=== PATIENT | female | born 1960 ===

== ENCOUNTER 2025-02-10 08:46 | Outpatient (AMB) | payer OTHER, SELFPAY ==
--- OUTSIDE RECORDS SUMMARY | 2025-02-10 09:12 | XMS_ITS | Clinical Summary ---
Author Organization [facility] [place] [address] Phone Care Team Providers Care Precinct I Police Sergeant Name Role Phone Araceli Street NP Primary Care Provider Allergies Active Allergy Reactions Criticality Noted Date Comments Prochlorperazine Anaphylaxis High 04/15/2024 Medications omeprazole (PriLOSEC) [address] capsule Take 1 capsule (40 mg total) by mouth every other day. Active multivitamine, geriatric, (Multivitamin 50 Plus) tablet Take by mouth. 3 Active loratadine 10 mg capsule Take 10 mg by mouth. 3 Active hydrocortisone (ANUSOL-HC) 2.5 % rectal creamIndications :Hemorrhoids, unspecified hemorrhoid type Insert into the rectum 2 (two) times a day. Use as needed for hemorrhoids 30 g 11 4 04/15/20 25 Active Active Problems No known active problems Surgical History Surgery Date Site/Laterality Comments COLONOSCOPY DILATION AND CURETTAGE OF UTERUS SKIN CANCER EXCISION Medical History Medical History Date Comments GERD (gastroesophageal reflux disease) Seasonal allergies Family History Relation Name Status Comments Maternal Grandfather COLON C A Social History Tobacco Use Types Packs/Day Years Used Date Smoking Tobacco: Never Smokeless Tobacco: Never Tobacco Cessation:Counseling Given: Not Answered Alcohol Use Standard Drinks/Week Comments Not Currently 0 (1 standard drink = 0.6 oz pur e alcohol) Interpersonal Safety Answer Date Record ed Physical Abuse 04/15/2024 Verbal Abuse 04/15/2024 Comments No Sex and Gender Information Value Date Recorded Sex Assigned at Not on file Legal Sex Female 3:42 PM EDT Gender Identity Not on file Sexual Orientation Not on file Obstetrics History Last Filed Vital Signs Vital Sign Reading Time Taken Comments Blood Pressure 145/66 04/15/2024 1:15 PM EST Pulse 73 04/15/2024 1:15 PM EST Temperature 37 C (98.6 F) 04/15/2024 1:15 PM EST Respiratory Rate 14 04/15/2024 1:15 PM EST Oxygen Saturation 96% 04/15/2024 1:15 PM EST Inhaled Oxygen Concentration - - Weight 81.6 kg (180 lb) 04/15/2024 11:55 AM EST Height 162.6 cm (5' 4 ) 04/15/2024 11:55 AM EST Body Mass Index 30.9 04/15/2024 11:55 AM EST Plan of Treatment Health Maintenance Due Date Last Done Comments Breast Cancer Screening 1960 Cervical Cancer Screening: P ap Smear 1982 Pneumococcal Vaccine: 50+ Years (1 of 1 - PCV) 2011 Zoster Vaccines (1 of 2) 2011 HIV Screening 03/25/2024 Hepatitis C Screening 03/25/2024 Social Influencers of Health Screening 03/25/2024 Depression Screening 06/10/2024 COVID-19 Vaccine (1 - 2023-2 5 season) 2025 Influenza Vaccine (#1) 2025 , 04/28/2019 DTaP,Tdap,and Td Vaccines (2 - Td or Tdap) 12/31/2026 12/31/2016 Colorectal Cancer Screening: Colonoscopy 04/15/2034 04/15/2024 RSV Immunization Adult Patients (1 - 1-dose 75+ series) 2036 HIB Vaccines Aged Out No longer eligi ble based on patient's age to complete this topic HPV Vaccines Aged Out No longer eligi ble based on patient's age to complete this topic Hepatitis A Vaccines Aged Out No long er eligible based on patient's age to complete this topic Hepatitis B Vaccines Aged Out No long er eligible based on patient's age to complete this topic IPV Vaccines Aged Out No longer eligi ble based on patient's age to complete this topic MMR Vaccines Aged Out No longer eligi ble based on patient's age to complete this topic Meningococcal ACWY Vaccine Aged Out N o longer eligible based on patient's age to complete this topic Meningococcal B Vaccine Aged Out No l onger eligible based on patient's age to complete this topic RSV Immunization Patients Under 20 months Aged Out No longer eligible b ased on patient's age to complete this topic Varicella Vaccines Aged Out No longer eligible based on patient's age to complete this topic Procedures Procedure Name Priority Date/Time Associated Diagnosis Comments COLONOSCOPY Routine 04/15/2024 12:52 PM EST Encounter for screening for malignant neoplasm of colon from Last 3 Months or Most Recently Relevant to Health Maintenance Results * COLONOSCOPY Anesthesia - MAC; [facility] ENDOSCOPY (04/15/2024 12:52 PM EST) Anatomical Region Laterality Modality Endoscopy 04/15/2024 12:3 1 PM EST Narrative 04/15/2024 12:58 PM EST [facility] GI Patient Name: Zaira Pate Procedure Date: 04/15/2024 12:31 PM Date of : 1960 Age: 64 Gender: Female Note Status: Finalized Attending MD: Chuy Cadet MD, Procedure Date No Time: 04/15/2024 Procedure: Colonoscopy Indications: High risk colon cancer surveillance: Personal history of colonic polyps Providers: Chuy Cadet MD Referring MD: Chuy Cadet MD Medicines: Monitored Anesthesia Care Complications: No immediate complications. Estimated Blood Loss: Estimated blood loss: none. Procedure: After I obtained informed consent, the scope was passed under direct vision. Throughout the procedure, the patient's blood pressure, pulse, and oxygen saturations were monitored continuously. The Olympus Pediatric Colonoscope was introduced through the anus and advanced to the cecum, identified by appendiceal orifice and ileocecal valve. The colonoscopy was performed without difficulty. The patient tolerated the procedure well. The quality of the bowel preparation was good. Findings: The exam was otherwise without abnormality on direct and retroflexion views. Impression: - The examination was otherwise normal on direct and retroflexion views. I did not see any significant hemorrhoids, does have an external eliseo of tags though. - No specimens collected. Recommendation: - Patient has a contact number available for emergencies. The signs and symptoms of potential delayed complications were discussed with the patient. Return to normal activities tomorrow. Written discharge instructions were provided to the patient. - Resume previous diet. - Continue present medications. - Repeat colonoscopy in 3 - 5 years for surveillance. - Please apply Balenol Cream (over the counter) to anal area aftter moving bowels and showering. If not imroving please call office. - Please apply Balenol Cream (over the counter) to anal area aftter moving bowels and showering. If not imroving please call office. Chuy Cadet MD Chuy Cadet MD 04/15/2024 12:58:09 PM This report has been signed electronically.Chuy Cadet MD Number of Addenda: 0 Note Initiated On: 04/15/2024 12:31 PM Scope Withdrawal Time: 0 hours 10 minutes 19 seconds Scope In: 12:37:25 PM Scope Out: 12:53:40 PM Endoscopy Department at [facility] - [address] [place] [phone] Procedure Note Chuy Cadet MD - 04/15/2024 [facility] GI Patient Name: Zaira Pate Procedure Date: 04/15/2024 12:31 PM Date of : 1960 Age: 64 Gender: Female Note Status: Finalized Attending MD: Chuy Cadet MD, Procedure Date No Time: 04/15/2024 Procedure: Colonoscopy Indications: High risk colon cancer surveillance: Personalhistory of colonic polyps Providers: Chuy Cadet MD Referring MD: Chuy Cadet MD Medicines: Monitored Anesthesia Care Complications: No immediate complications. Estimated Blood Loss: Estimated blood loss: none. Procedure: After I obtained informed consent, the scope was passed under direct vision. Throughout theprocedure, the patient's blood pressure, pulse, and oxygen saturations were monitored continuously. TheOlympus Pediatric Colonoscope was introduced through theanus and advanced to the cecum, identified byappendiceal orifice and ileocecal valve. The colonoscopy was performed without difficulty. The patient tolerated the procedure well. The quality of the bowel preparation was good. Findings: The exam was otherwise without abnormality ondirect and retroflexion views. Impression: - The examination was otherwise normal on directand retroflexion views. I did not see any significant hemorrhoids, does have an external eliseo of tags though. - No specimens collected. Recommendation: - Patient has a contact number available for emergencies. The signs and symptoms of potential delayed complications were discussed with thepatient. Return to normal activities tomorrow. Written discharge instructions were provided to thepatient. - Resume previous diet. - Continue present medications. - Repeat colonoscopy in 3 - 5 years forsurveillance. - Please apply Balenol Cream (over the counter) to anal area aftter moving bowels and showering. Ifnot imroving please call office. - Please apply Balenol Cream (over the counter) to anal area aftter moving bowels and showering. Ifnot imroving please call office. Chuy Cadet MD Chuy Cadet MD 04/15/2024 12:58:09 PM This report has been signed electronically.Chuy Cadet MD Number of Addenda: 0 Note Initiated On: 04/15/2024 12:31 PM Scope Withdrawal Time: 0 hours 10 minutes 19 seconds Scope In: 12:37:25 PM Scope Out: 12:53:40 PM Endoscopy Department at [facility] - [address] [place] [phone] Chuy Cadet MD GI~PROCEDURE ORDERABLES Final R esult from Last 3 Months or Most Recently Relevant to Health Maintenance Insurance [facility] Care Teams Precinct I Police Sergeant Relationship Specialty Start Date End Date Araceli Street NP [address] [place] [id number] PCP - General Internal Medicine 04/15/24
--- OUTSIDE RECORDS SUMMARY | 2025-02-10 09:13 | XMS_ITS | Patient Health Record ---
Author Organization [facility] Address [address] [place] [address] Care Team Providers Care Tax Specialist Name Role Phone Sharon Servin Unavailable [phone] Reason For Referral No Information Medications Medication SIG (Take, Route, Frequency, Duration) Notes Start Date End Date Status Estrace Vaginal Cream 42.5GM VAGINAL 0.5GM 2 X WEEK; Duration: -3 Todd-MJ 07/07/2012 Active Necon (28) 1MG 1 ORAL daily; Durati on: -3 Todd-MJ 04/14/2012 Active Problems Problem Type SNOMED Code ICD Code Onset Dates Problem Status W/U Status Risk Notes Problem Allergy (287839768) Allergy, unspecified not elsewhere classified (995.3) Active confirmed Diag Problem Gynecological examination normal (772673114157858) Routine gynecological examination (V72.31) Active confirmed Diag Plan Of Treatment No Information Insurance Providers Payer Name Payer Address Payer Phone Subscriber Number Group Number Insured Name Patient Relationship to Insured Coverage Start Date Coverage End Date [facility] [address] [address] [place] [address] [phone] [id number] BRO KNOWLES Self - patient is the insured
== END 2025-02-10 09:10 | disposition home or self-care (01) ==
LOC: HO.HMGAL 08:46
PROVIDERS: PCP Internal Medicine; Visit Provider Registered Nurse Emergency
DX: J30.89 Other allergic rhinitis (principal)
CPT/HCPCS: 95117; 95165

== ENCOUNTER 2025-03-17 10:47 | Outpatient (AMB) | payer OTHER, SELFPAY | END 2025-03-17 10:48 | disposition home or self-care (01) | LOC: HO.HMGAL 10:47 | PROVIDERS: PCP Nurse Practitioner Gerontology; Visit Provider Registered Nurse Emergency | DX: J30.89 Other allergic rhinitis (principal) | CPT/HCPCS: 95117; 95165 ==

== ENCOUNTER 2025-04-14 10:18 | Outpatient (AMB) | payer OTHER, SELFPAY ==
--- OUTSIDE RECORDS SUMMARY | 2025-04-14 11:54 | XMS_ITS | Clinical Summary ---
Author Organization [facility] [place] [address] Phone Care Team Providers Care Distribution Dispatcher Name Role Phone Araceli Street NP Primary [...] Safety Answer Date Record ed Physical Abuse Unrecognized value 04/15/2024 Verbal Abuse Unrecognized value 04/15/2024 Comments No Sex and Gender Information [...] Maintenance Results * COLONOSCOPY Anesthesia - MAC; [facility] ENDOSCOPY (04/15/2024 12:52 PM EST) Anatomical Region Laterality Modality Endoscopy 04/15/2024 12:3 1 PM EST Narrative 04/15/2024 12:[address] [facility] GI Patient Name: Zaira Pate Procedure Date: [...] Scope Out: 12:53:40 PM Endoscopy Department at [facility] - [address] [place] [phone] Procedure Note Chuy Cadet MD - 04/15/[address] [facility] GI Patient Name: Zaira Pate Procedure Date: [...] Scope Out: 12:53:40 PM Endoscopy Department at [address] [phone] Chuy Cadet MD GI~PROCEDURE ORDERABLES Final R esult from Last 3 Months or Most Recently Relevant to Health Maintenance Insurance [facility] Care Teams Distribution Dispatcher Relationship Specialty Start Date End Date Araceli Street NP [address] [place] [id number] PCP - General Internal Medicine 04/15/24
--- OUTSIDE RECORDS SUMMARY | 2025-04-14 11:54 | XMS_ITS | Patient Health Record ---
Author Organization [facility] Address [address] [place] [address] Care Team Providers Care Payroll Administrative Assistant Name Role Phone Sharon Servin Unavailable [phone] Reason For Referral No Information Medications Medication SIG (Take, Route, Frequency, Duration) Notes Start Date End Date Status Estrace Vaginal Cream 42.5GM VAGINAL 0.5GM 2 X WEEK; Duration: -3 Todd-MJ 07/07/2012 Active Necon (28) 1MG 1 ORAL daily; Durati on: -3 Todd-MJ 04/14/2012 Active Problems Problem Type SNOMED Code ICD Code Onset Dates Problem Status W/U Status Risk Notes Problem Allergy (739428069) Allergy, unspecified not elsewhere classified (995.3) Active confirmed Diag Problem Gynecological examination normal (187117862807404) Routine gynecological examination (V72.31) Active confirmed Diag Plan Of Treatment No Information Insurance Providers Payer Name Payer Address Payer Phone Subscriber Number Group Number Insured Name Patient Relationship to Insured Coverage Start Date Coverage End Date [facility] [address] [address] [place] [address] [phone] [id number] BRO KNOWLES Self - patient is the insured
== END 2025-04-14 10:21 | disposition home or self-care (01) ==
LOC: HO.HMGAL 10:18
PROVIDERS: PCP Nurse Practitioner Gerontology; Visit Provider Registered Nurse Emergency
DX: J30.89 Other allergic rhinitis (principal)
CPT/HCPCS: 95117; 95165

== ENCOUNTER 2025-05-24 13:33 | Outpatient (AMB) | payer OTHER, SELFPAY ==
--- OUTSIDE RECORDS SUMMARY | 2025-05-24 19:44 | XMS_ITS | Patient Health Record ---
Author Organization [facility] Address [address] [place] [address] Care Team Providers Care Laboratory Secretary Name Role Phone Sharon Servin Unavailable [phone] Reason For Referral No Information Medications Medication SIG (Take, Route, Frequency, Duration) Notes Start Date End Date Status Estrace Vaginal Cream 42.5GM VAGINAL 0.5GM 2 X WEEK; Duration: -3 Todd-MJ 07/07/2012 Active Necon (28) 1MG 1 ORAL daily; Durati on: -3 Todd-MJ 04/14/2012 Active Problems Problem Type SNOMED Code ICD Code Onset Dates Problem Status W/U Status Risk Notes Problem Allergy (083684528) Allergy, unspecified not elsewhere classified (995.3) Active confirmed Diag Problem Gynecological examination normal (608476267620220) Routine gynecological examination (V72.31) Active confirmed Diag Plan Of Treatment No Information Insurance Providers Payer Name Payer Address Payer Phone Subscriber Number Group Number Insured Name Patient Relationship to Insured Coverage Start Date Coverage End Date [facility] [address] [address] [place] [address] [id number] BRO KNOWLES Self - patient is the insured
--- OUTSIDE RECORDS SUMMARY | 2025-05-24 19:44 | XMS_ITS | Clinical Summary ---
Author Organization [facility] [place] [address] Phone Care Team Providers Care Keno Terminal Operator Name Role Phone Araceli Street NP Primary [...] needed for hemorrhoids 30 g 11 4 Active Active Problems No known active problems [...] on file Sexual Orientation Not on file Last Filed Vital Signs Vital Sign Reading [...] Depression Screening 06/10/2024 COVID-19 Vaccine (1 - 2024-2 6 season) 2025 Influenza Vaccine (#1) 2025 , 04/28/2019 DTaP,Tdap,and Td Vaccines (2 - Td or Tdap) 12/31/2026 12/31/2016 Colorectal Cancer Screening: Colonoscopy 04/15/2034 04/15/2024, 08/25/2013, 12/17/2002 RSV Immunization Adult Patients (1 - 1-dose [...] Maintenance Results * COLONOSCOPY Anesthesia - MAC; [facility] ENDOSCOPY (04/15/2024 12:52 PM EST) Anatomical Region Laterality Modality Endoscopy 04/15/2024 12:3 1 PM EST Narrative 04/15/2024 12:58 PM EST [facility] GI Patient Name: Zaira Pate Procedure Date: [...] imroving please call office. Chuy Cadet MD Cuhy Cadet MD 04/15/2024 12:58:09 PM This report has been signed electronically.Chuy Cadet MD Number of Addenda: 0 Note Initiated On: 04/15/2024 12:31 PM Scope Withdrawal Time: 0 hours 10 minutes 19 seconds Scope In: 12:37:25 PM Scope Out: 12:53:40 PM Endoscopy Department at [facility] - [address] [place] [phone] Procedure Note Chuy Cadet MD - 04/15/2024 [facility] GI Patient Name: Zaira Pate Procedure Date: [...] Scope Out: 12:53:40 PM Endoscopy Department at [address] [phone] Chuy Cadet MD GI~PROCEDURE ORDERABLES Final R esult from Last 3 Months or Most Recently Relevant to Health Maintenance Insurance [facility] Care Teams Keno Terminal Operator Relationship Specialty Start Date End Date Araceli Street NP [address] [place] [id number] PCP - General Internal Medicine 04/15/24
== END 2025-05-24 13:34 | disposition home or self-care (01) ==
LOC: HO.HMGAL 13:33
PROVIDERS: PCP Nurse Practitioner Gerontology; Visit Provider Registered Nurse Emergency
DX: J30.89 Other allergic rhinitis (principal)
CPT/HCPCS: 95117; 95165